=== PATIENT | male | born 1955 | race Caucasian/White ===

== ENCOUNTER 2020-03-12 12:09 | Day surgery (SDC) | payer OTHER ==
[~2020-03-12] VITALS: Ht 172.7 cm; Wt 86.5 kg
[~2020-03-12 12:09] MED LIST: SODIUM CHLORIDE 0.9% 1,000 ML IV ONE; SODIUM CHLORIDE 0.9% 1,000 ML ONE
[2020-03-12] MEDS ORDERED: PROPOFOL 1% 20 ML VIAL IVP ONE (12:10)
[2020-03-12] MEDS ORDERED: FURO40TA5 PO (12:25)
[2020-03-12] MEDS ORDERED: LACT10SO75 PO (12:25)
[2020-03-12] MEDS ORDERED: MULT-959 PO (12:25)
[2020-03-12] MEDS ORDERED: SPIR100T5 PO (12:25)
== END 2020-03-12 14:50 | disposition home or self-care (01) ==
LOC: SURGERY 12:09
PROVIDERS: ATTEND Student in an Organized Health Care Education/Training Program
DX: I85.00 Esophageal varices without bleeding (principal); K31.89 Other diseases of stomach and duodenum; K76.6 Portal hypertension; K29.50 Unspecified chronic gastritis without bleeding; K74.60 Unspecified cirrhosis of liver; Z20.828 Contact with and (suspected) exposure to other viral communicable diseases
CPT/HCPCS: 43239; 43244; 87635; 88305; 88312; 88313; C1769; J2704; J7030